=== PATIENT | male | born 1995 | race Caucasian/White ===

== ENCOUNTER 2017-03-31 18:45 | Inpatient (IN) | payer OTHER ==
[2017-03-31] MEDS ORDERED: SODIUM CHLORIDE 0.9% 1,000 ML IV ONE (20:32)
[2017-03-31] MEDS ORDERED: KETOROLAC 30 MG/ML 1 ML VIAL IVP STA (21:21)
[2017-03-31] MEDS ORDERED: IV VANCOMYCIN PER PHARMACY 1 EACH MISC MISCELLANE PRN (21:27)
--- NOTE | 2017-03-31 21:29 | ED ---
Skin/Abscess/FB HPI - General Chief complaint: Skin/Abscess/Foreign Body Stated complaint: abcess Time Seen by Provider: 03/31/17 20:19 Source: patient, RN notes reviewed, old records reviewed Mode of arrival: ambulatory Limitations: no limitations - History of Present Illness Initial comments: Is a 22-year-old male presenting to the emergency department with chief complaint of infection in his right axilla. Patient states that he noticed the pain a proximal 6 days ago. He reports that it's gotten worse. He size a provider at that emergency department 2 days ago and it was incised and drained. Patient was also seen again one day after and was a second incision and drainage performed at that time. Patient was also given a dose of IV clindamycin. Patient states that since yesterday the pain and swelling is worse in the right axilla. Patient has noticed increased redness extended from the right axilla all the way down to his right upper arm. Patient states that the pain is worse in the abscess. Patient was transferred via EMS from [facility] for further workup. Patient has been on Bactrim double strength for the past 3 days as well as the IV clindamycin. Patient denies any fever but states he feels chilled. Labs were obtained at [facility]. White count was 8.0, RBCs 4.4, hemoglobin 13.4. BUN 13, creatinine 0.9 mg. Potassium 4.0, sodium 137. Chloride 105. Patient denies any nausea or vomiting or abdominal pain. Denies any chest pain or shortness of breath. Patient reports the pain is just worse whenever he moves his arm. - Related Data Home Medications Medication Instructions Recorded Confirmed Sulfamethox-Tmp 800-160Mg [Bactrim 2 tab PO Q12HR 03/31/17 03/31/17 DS 800-160 mg] Allergies Allergy/AdvReac Type Severity Reaction Status Date / Time No Known Allergies Allergy Verified 03/31/17 20:32 Review of Systems ROS Statement: Those systems with pertinent positive or pertinent negative responses have been documented in the HPI. ROS Other: All systems not noted in ROS Statement are negative. Past Medical History Past Medical History: GERD/Reflux Additional Past Medical History / Comment(s): Asperger syndrome; Borderline Personality Disorder History of Any Multi-Drug Resistant Organisms: None Reported Past Surgical History: No Surgical Hx Reported Past Anesthesia/Blood Transfusion Reactions: No Reported Reaction Past Psychological History: Anxiety, Bipolar, Depression Smoking Status: Former smoker Past Alcohol Use History: None Reported Additional Past Alcohol Use History / Comment(s): Patient did smoke 3 to 4 cigarettes daily and quit in fall 2015. He denies any street drug use. Rarely drinks etoh. He lives alone. He does not have any children. He is not employed. He does have a GED. New Admission 06/26/15: Patient denies any alcohol use for the last 6 months. Past Drug Use History: None Reported - Past Family History Mother Family Medical History: No Reported History Additional Family Medical History / Comment(s): Mother is alive the patient does not have any contact with her and does not know her medical history. Father Family Medical History: Chest Pain / Angina Additional Family Medical History / Comment(s): Father is alive the patient has no contact with him. He does not know his past medical history. Brother(s) Family Medical History: No Reported History Additional Family Medical History / Comment(s): He has 3/2 brothers that are healthy. Sister(s) Family Medical History: No Reported History Additional Family Medical History / Comment(s): He has one full sister and one half-sister that are healthy with no major medical problems. General Exam - General Exam Comments Initial Comments: This is a pleasant 22-year-old male with chief complaint of right axillary abscess. Patient does not appear to be in any acute distress. Limitations: no limitations General appearance: alert, in no apparent distress Head exam: Present: atraumatic, normocephalic, normal inspection Eye exam: Present: normal appearance, PERRL, EOMI. Absent: scleral icterus, conjunctival injection, periorbital swelling ENT exam: Present: normal exam, mucous membranes moist Neck exam: Present: normal inspection. Absent: tenderness, meningismus, lymphadenopathy Respiratory exam: Present: normal lung sounds bilaterally. Absent: respiratory distress, wheezes, rales, rhonchi, stridor Cardiovascular Exam: Present: regular rate, normal rhythm, normal heart sounds. Absent: systolic murmur, diastolic murmur, rubs, gallop, clicks GI/Abdominal exam: Present: soft, normal bowel sounds. Absent: distended, tenderness, guarding, rebound, rigid Extremities exam: Present: normal inspection, full ROM, normal capillary refill. Absent: tenderness, pedal edema, joint swelling, calf tenderness Left Shoulder Exam: Present: normal inspection, full ROM, other (Patient has significant left axillary abscess measuring approximately 7 cm x 7 cm.) Upper Arm exam: Present: normal inspection, erythema (Patient has significant erythema extending of the upper arm. Line was drawn at this time.). Absent: full ROM Elbow exam: Present: normal inspection, full ROM Forearm Wrist exam: Present: normal inspection, full ROM Hand Wrist exam: Present: normal inspection, full ROM Neuro motor exam: Present: wrist extension intact, thumb opposition intact, thumb IP flexion intact, thumb adduction intact Vascular: Present: normal capillary refill Back exam: Present: normal inspection Neurological exam: Present: alert, oriented X3, CN II-XII intact Psychiatric exam: Present: normal affect, normal mood Skin exam: Present: warm, dry, intact, normal color. Absent: rash Course Vital Signs 03/31/17 03/31/17 19:45 22:19 Temperature 97.9 F 98.3 F Pulse Rate 80 73 Respiratory 18 18 Rate Blood Pressure 115/63 157/75 O2 Sat by Pulse 100 98 Oximetry Medical Decision Making - Medical Decision Making This is a pleasant 22-year-old male chief complaint of left axilla abscess for the past 6 days. He's had 2 incision and drainages as well as been on Bactrim for the past 3 days. Patient reports no improvement. He also has significant redness extending down the upper arm at this time. Patient was transferred here from [facility]. Labs were obtained. We did do blood cultures and an aerobic wound culture here. Patient will be started on vancomycin, patient failed outpatient bactrim. Patient does not have sepsis criteria at this time. Also patient relates that he recently go out of [facility] fo [facility]9 months 3 weeks or so ago. Patient states that he has noticed a rash on arms and legs, patient is concerned of possible bed bugs. No bug was seen on patient at this time. Patient agrees to the admission. Possible surgery consult may be needed for the incision and drainage of this abscess again. - Lab Data Result diagrams: 04/01/17 00:45 Disposition Clinical Impression: Abscess of right axilla, Right arm cellulitis Disposition: ADMITTED IP TO THIS HOSP Condition: Good Time of Disposition: 22:03
[2017-03-31] MEDS ORDERED: VANCOMYCIN 1,750 MG in SODIUM CHLORIDE 0.9% 250 ML IVPB STA (21:39)
[2017-03-31] MEDS: SODIUM CHLORIDE 0.9% 1,000 ML IV SCH (21:47)
[2017-03-31] MEDS ORDERED: ONDANSETRON 4 MG/2 ML VIAL IVP PRN (22:04)
[2017-03-31] MEDS ORDERED: ACETAMINOPHEN TAB 325 MG TAB PO PRN (22:04)
[2017-03-31] MEDS ORDERED: ALPRAZolam 0.25 MG TAB PO PRN (22:04)
[2017-03-31] MEDS ORDERED: NALOXONE 0.4 MG/ML 1 ML VIAL IV PRN (22:04)
[2017-03-31] MEDS ORDERED: MORPHINE SULFATE 4 MG/ML SYRINGE IV PRN (22:04)
[2017-04-01 01:10] LABS: Anion Gap 9 mmol/L; Blood Urea Nitrogen 13 mg/dL (9-20); Carbon Dioxide 23 mmol/L (22-30); Chloride 108 mmol/L (98-107); Glucose 99 mg/dL (74-99); Non-African American GFR(MDRD) >60 (>60 ml/min/1.73 sqM); Sodium 140 mmol/L (137-145)
[2017-04-01] MEDS: KETOROLAC 30 MG/ML 1 ML VIAL IVP PRN ×3 (08:43→22:18)
[2017-04-01] MEDS: VANCOMYCIN 1,750 MG in SODIUM CHLORIDE 0.9% 250 ML IVPB SCH ×2 (08:54→15:34)
[2017-04-01 10:17] LABS: Basophils # (A) 0.1 k/uL (0-0.2); Basophils % (A) 1 %; CH 30.1; CHCM 33.2; Eosinophils # (A) 0.3 k/uL (0-0.7); Eosinophils % (A) 6 %; HCT 39.4 % (39.0-53.0); HDW 2.78; HGB 12.9 gm/dL (13.0-17.5); Luc # (Auto) 0.09; Luc % (Auto) 2; Lymphocytes # (A) 0.9 k/uL (1.0-4.8); Lymphocytes % (A) 16 %; MCH 29.8 pg (25.0-35.0); MCHC 32.7 g/dL (31.0-37.0); MCV 91.1 fL (80.0-100.0); Mean Platelet Volume 6.6; Monocytes # (A) 0.3 k/uL (0-1.0); Monocytes % (A) 6 %; Neutrophils # (A) 3.9 k/uL (1.3-7.7); Neutrophils % (A) 70 %; RBC 4.32 m/uL (4.30-5.90); RDW 12.5 % (11.5-15.5); WBC 5.6 k/uL (3.8-10.6); WBC (Perox) 5.82
[2017-04-01 10:47] LABS: Anion Gap 10 mmol/L; Blood Urea Nitrogen 13 mg/dL (9-20); Calcium 9.4 mg/dL (8.4-10.2); Carbon Dioxide 21 mmol/L (22-30); Chloride 111 mmol/L (98-107); Glucose 100 mg/dL (74-99); Non-African American GFR(MDRD) >60 (>60 ml/min/1.73 sqM); Potassium 4.5 mmol/L (3.5-5.1); Sodium 142 mmol/L (137-145)
[2017-04-01 11:43] VITALS: BMI 34.4
[2017-04-01] MEDS ORDERED: TEMAZEPAM 15 MG CAP PO PRN (13:01)
[2017-04-01] MEDS ORDERED: HYDROcodone/APAP 5-325MG 1 EACH TAB PO PRN (13:01)
[2017-04-01] MEDS ORDERED: DIPH,PERTUS(ACELL)TETVAC-LF 0.5 ML VIAL IM ONE (13:22)
--- NOTE | 2017-04-01 13:25 | P.GSCN ---
History of Present Illness Consult date: 04/01/17 Reason for Consult: Right axilla abscess Requesting physician: Lynn Sadler History of present illness: Patient is a 22-year-old male admitted through the emergency department with complaints of infection to his right axilla. Onset of symptoms approximately 6 days ago. Patient apparently underwent incision and drainage in the emergency department 2 days ago and then returned the day after for another incision and drainage the symptoms did not improve. Patient was given 1 dose of IV clindamycin and started on Bactrim. Patient presented as mentioned above to the [facility] emergency department with increase in axillary pain and increased redness extending from his right axilla down his right upper arm. No evidence of fevers or leukocytosis on admission. Aerobic cultures were obtained. Patient was admitted to the medical floor for IV antibiotics. Upon examination , he should reports improvement in right arm pain. Denies chills, fevers, nausea, vomiting, shortness of breath, chest pain, or abdominal pain. Past Medical History Past Medical History: GERD/Reflux Additional Past Medical History / Comment(s): Asperger syndrome; Borderline Personality Disorder History of Any Multi-Drug Resistant Organisms: None Reported Past Surgical History: No Surgical Hx Reported Past Anesthesia/Blood Transfusion Reactions: No Reported Reaction Past Psychological History: Anxiety, Bipolar, Depression Smoking Status: Former smoker Past Alcohol Use History: None Reported Additional Past Alcohol Use History / Comment(s): Patient did smoke 3 to 4 cigarettes daily and quit in fall 2015. He denies any street drug use. Rarely drinks etoh. He lives alone. He does not have any children. He is not employed. He does have a GED. New Admission 06/26/15: Patient denies any alcohol use for the last 6 months. Past Drug Use History: None Reported - Past Family History Mother Family Medical History: No Reported History Additional Family Medical History / Comment(s): Mother is alive the patient does not have any contact with her and does not know her medical history. Father Family Medical History: Chest Pain / Angina Additional Family Medical History / Comment(s): Father is alive the patient has no contact with him. He does not know his past medical history. Brother(s) Family Medical History: No Reported History Additional Family Medical History / Comment(s): He has 3/2 brothers that are healthy. Sister(s) Family Medical History: No Reported History Additional Family Medical History / Comment(s): He has one full sister and one half-sister that are healthy with no major medical problems. Medications and Allergies Home Medications Medication Instructions Recorded Confirmed Type Sulfamethox-Tmp 800-160Mg [Bactrim 2 tab PO Q12HR 03/31/17 03/31/17 History DS 800-160 mg] Allergies Allergy/AdvReac Type Severity Reaction Status Date / Time No Known Allergies Allergy Verified 03/31/17 20:32 Surgical - Exam Vital Signs Temp Pulse Resp BP Pulse Ox 97.9 F 80 18 115/63 100 03/31/17 19:45 03/31/17 19:45 03/31/17 19:45 03/31/17 19:45 03/31/17 19:45 GENERAL: Pt awake and alert, well-appearing, well-nourished, and in no acute distress. LUNGS: Breath sounds clear to auscultation bilaterally. No wheezes, rales, or rhonchi. HEART: Heart S1, S2, no S3 or S4. No murmurs, rubs or gallops. ABDOMEN: Soft, nontender, nondistended, normoactive bowel sounds. No guarding, no rebound. No masses or organomegaly appreciated. NEUROLOGICAL: Pt oriented x 3. PSYCH: Normal mood, normal affect. SKIN: Right axillary abscess measuring approximately 7 cm x 7 cm with surrounding erythema. No purulent drainage noted. Results - Labs 04/01/17 09:56 04/01/17 09:56 Abnormal Lab Results - Last 24 Hours (Table) 04/01/17 04/01/17 04/01/17 Range/Units 00:45 09:56 09:56 Hgb 12.9 L (13.0-17.5) gm/dL Lymphocytes # 0.9 L (1.0-4.8) k/uL Chloride 108 H 111 H (98-107) mmol/L Carbon Dioxide 21 L (22-30) mmol/L Glucose 100 H (74-99) mg/dL Microbiology - Last 24 Hours (Table) 03/31/17 21:45 Wound Culture - Preliminary Axilla - Right Diabetes panel 04/01/17 04/01/17 Range/Units 00:45 09:56 Sodium 140 142 (137-145) mmol/L Potassium 4.0 4.5 (3.5-5.1) mmol/L Chloride 108 H 111 H (98-107) mmol/L Carbon Dioxide 23 21 L (22-30) mmol/L BUN 13 13 (9-20) mg/dL Creatinine 0.90 0.81 (0.66-1.25) mg/dL Glucose 99 100 H (74-99) mg/dL Calcium 9.0 9.4 (8.4-10.2) mg/dL Calcium panel 04/01/17 04/01/17 Range/Units 00:45 09:56 Calcium 9.0 9.4 (8.4-10.2) mg/dL Pituitary panel 04/01/17 04/01/17 Range/Units 00:45 09:56 Sodium 140 142 (137-145) mmol/L Potassium 4.0 4.5 (3.5-5.1) mmol/L Chloride 108 H 111 H (98-107) mmol/L Carbon Dioxide 23 21 L (22-30) mmol/L BUN 13 13 (9-20) mg/dL Creatinine 0.90 0.81 (0.66-1.25) mg/dL Glucose 99 100 H (74-99) mg/dL Calcium 9.0 9.4 (8.4-10.2) mg/dL Adrenal panel 04/01/17 04/01/17 Range/Units 00:45 09:56 Sodium 140 142 (137-145) mmol/L Potassium 4.0 4.5 (3.5-5.1) mmol/L Chloride 108 H 111 H (98-107) mmol/L Carbon Dioxide 23 21 L (22-30) mmol/L BUN 13 13 (9-20) mg/dL Creatinine 0.90 0.81 (0.66-1.25) mg/dL Glucose 99 100 H (74-99) mg/dL Calcium 9.0 9.4 (8.4-10.2) mg/dL Assessment and Plan Plan: Impression: 1. Right axillary abscess status post incision and drainage. Plan: 1. Continue IV antibiotics per Dr. Hussein recommendations. No surgical intervention planned at this time. Continue to monitor patient. The above impression and plan have been discussed and directed by Dr. Vizcarra. Nitesh BLANKENSHIP acting as scribe for Dr. Vizcarra.
[2017-04-01 13:35] LABS: ALT 82 U/L (21-72); AST 74 U/L (17-59); Alkaline Phosphatase 80 U/L (38-126); Anion Gap 9 mmol/L; Blood Urea Nitrogen 12 mg/dL (9-20); Calcium 9.5 mg/dL (8.4-10.2); Carbon Dioxide 21 mmol/L (22-30); Chloride 111 mmol/L (98-107); Glucose 100 mg/dL (74-99); Non-African American GFR(MDRD) >60 (>60 ml/min/1.73 sqM); Potassium 4.5 mmol/L (3.5-5.1); Sodium 141 mmol/L (137-145); Total Bilirubin 0.6 mg/dL (0.2-1.3); Total Protein 6.2 g/dL (6.3-8.2)
--- NOTE | 2017-04-01 13:40 | HP ---
DATE OF ADMISSION: CHIEF COMPLAINT: Pain and swelling in the right axis. HISTORY OF PRESENT ILLNESS: This 22-year-old gentleman with a past medical history of gastroesophageal reflux disease, Asperger's syndrome, borderline personality disorder, history of anxiety, bipolar depression, being followed by no primary physician in the outpatient setting, was recently incarcerated apparently for the patient apparently was in longterm for about more than a year and the patient apparently has had some other the patient has also had skin infection and MRSA infection also. While in the longterm, patient developed an abscesses in the right shoulder which was incised by the PA Details are not available. Currently the patient is complaining of recurrent pain and swelling in the right axilla which was incised twice and now because of the lack of improvement, patient came to [facility] and admitted to the hospital for further evaluation and treatment. 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 The patient also reporting multiple skin lesions also which was some itching and as well as blanching also. There is no history of fever, rigors or chills. No history of headache, loss of consciousness or seizures. PAST MEDICAL HISTORY: History of GERD , Asperger's syndrome, borderline personality, bipolar depression, history of nicotine dependence. Medications prior to admission include: Bactrim DS one p.o. b.i.d. ALLERGIES: None. FAMILY HISTORY: Unknown. SOCIAL HISTORY: Previous history of smoking, no history of alcohol intake. REVIEW OF SYSTEMS: ENT: No diminishing hearing or diminished vision. CARDIOVASCULAR: S1, S2 normal. No angina or palpitations. RESPIRATORY: No cough. GI: No nausea and vomiting. GENITOURINARY: No dysuria. CENTRAL NERVOUS SYSTEM: No numbness or weakness. ALLERGIES: No asthma or hayfever. MUSCULOSKELETAL: As mentioned earlier. HEMATOLOGY/ONCOLOGY: No history of anemia. ENDOCRINE: No history of diabetes, or hypothyroidism. CONSTITUTIONAL: As mentioned earlier. DERMATOLOGY: As mentioned earlier. RHEUMATOLOGY: Negative. PSYCHIATRY: As mentioned earlier. PHYSICAL EXAMINATION: The patient is alert and oriented x3. Pulse 70, blood pressure 122/68, respiration 18, temperature 98 degrees, pulse ox 100% on room air. HEENT: Conjunctivae normal. NECK: No jugular venous distention. CARDIOVASCULAR: S1, S2 muffled. RESPIRATORY: Breath sounds diminished at the bases. Scattered rhonchi, no crackles. ABDOMEN: Soft, nontender. Legs: No edema. No swelling. Nervous system: Higher functions as mentioned earlier. Moves all four limbs. No focal deficits. No lymphadenopathy. Examination of the right axilla significant pain and swelling of the right no fluctuation, severely tender. SKIN: As mentioned earlier. Joints: No active deforming arthropathy. LAB INVESTIGATIONS AT THIS TIME shows: WBC 5.3, hemoglobin 12.9. Sodium 148, potassium 4.6, CO2 is 21, glucose 100. ASSESSMENT: 1. Recurrent abscess and cellulitis of the right axilla rule out Methicillin-resistant Staph aureus. 2. Possible hidradenitis suppurative. 3. Anemia, normocytic anemia of chronic disease. 4. Superficial skin lesions also. 5. Increased random blood sugar. 6. History of gastroesophageal reflux disease. 7. History of Asperger's syndrome. 8. History of borderline personality disorder. 9. Anxiety, bipolar depression, not otherwise specified. RECOMMENDATIONS AND DISCUSSION: Recommend to continue current medications, continue monitoring, symptomatic treatment, I would recommend to initiate vancomycin and also obtain infectious disease evaluation and evaluation. Other than that, we will follow the patient closely. Guarded prognosis because of multiple complex medical issues. Further recommendations to follow. A copy of dictation being forwarded to . I also recommend the patient to follow-up with primary care physician in the outpatient setting. BRIAN
--- NOTE | 2017-04-01 13:47 | P.CONS ---
History of Present Illness - Reason for Consult Consult date: 04/01/17 Right axilla abscess - History of Present Illness This is a 22-year-old male with history of Asperger's syndrome and borderline personality. Patient gives history that he had an abscess in the left axilla area 2 months ago and this was punctured and drained and he does not believe there were any cultures done at that time. He was incarcerated at that time in [facility]. 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 He has also developed redness and swelling in the right axilla area approximate 7 days ago. He states he went to the hospital in [place] a total of 3 times and believes he had IV antibiotics on a second trip there and had to I&D's done to the right axilla abscess and was placed on Bactrim on March 29. He subsequently went to the hospital in [place] yesterday and received a dose of clindamycin and then transferred to [facility] for further treatment. He states that he has been taking the Bactrim as prescribed since Friday and the redness and swelling in his right axilla only worsened. He denies having any fever or chills, muscle aches, body aches, nausea, vomiting. He does state he has decreased appetite and gives this history that he is only eating peanut butter since he was incarcerated. Redness from the right axilla has spread down his arm to the antecubital area. Patient has been on vancomycin and he states there has been some improvement of the swelling and size since his admission. Wound and blood cultures are status received. Review of Systems All systems: negative Constitutional: Denies chills, Denies fever Eyes: denies blurred vision, denies pain Ears, nose, mouth and throat: Denies headache, Denies sore throat Cardiovascular: Denies chest pain, Denies shortness of breath Respiratory: Denies cough Gastrointestinal: Denies abdominal pain, Denies diarrhea, Denies nausea, Denies vomiting Musculoskeletal: Denies myalgias Integumentary: Reports wounds, Denies pruritus, Denies rash Neurological: Denies numbness, Denies weakness Psychiatric: Denies anxiety, Denies depression Endocrine: Denies fatigue, Denies weight change Past Medical History Past Medical History: GERD/Reflux Additional Past Medical History / Comment(s): Asperger syndrome; Borderline Personality Disorder History of Any Multi-Drug Resistant Organisms: None Reported Past Surgical History: No Surgical Hx Reported Past Anesthesia/Blood Transfusion Reactions: No Reported Reaction Past Psychological History: Anxiety, Bipolar, Depression Smoking Status: Former smoker Past Alcohol Use History: None Reported Additional Past Alcohol Use History / Comment(s): Patient did smoke 3 to 4 cigarettes daily and quit in fall 2015. He denies any street drug use. Rarely drinks etoh. He lives alone. He does not have any children. 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 He was recently incarcerated for 9 months in [facility] Past Drug Use History: None Reported - Past Family History Mother Family Medical History: No Reported History Additional Family Medical History / Comment(s): Mother is alive the patient does not have any contact with her and does not know her medical history. Father Family Medical History: Chest Pain / Angina Additional Family Medical History / Comment(s): Father is alive the patient has no contact with him. He does not know his past medical history. Brother(s) Family Medical History: No Reported History Additional Family Medical History / Comment(s): He has 3/2 brothers that are healthy. Sister(s) Family Medical History: No Reported History Additional Family Medical History / Comment(s): He has one full sister and one half-sister that are healthy with no major medical problems. Medications and Allergies Allergies Allergy/AdvReac Type Severity Reaction Status Date / Time No Known Allergies Allergy Verified 03/31/17 20:32 Physical Exam Vitals: Vital Signs Temp Pulse Pulse Resp BP BP Pulse Ox 04/01/17 07:00 98 F 70 18 122/68 100 03/31/17 23:42 98.4 F 68 18 106/69 98 03/31/17 22:19 98.3 F 73 18 157/75 98 03/31/17 19:45 97.9 F 80 18 115/63 100 Intake and Output 03/31/17 04/01/17 04/01/17 22:59 06:59 14:59 Intake Total 100 Balance 100 Intake: Oral 100 Other: # Voids 1 1 Weight 99.79 kg 102.739 kg Gen: This is an overweight 22-year-old male. He is seen sitting up in bed and appears to be in no acute distress.. HEENT: Head is atraumatic, normocephalic. Pupils equal, round. Sclerae is anicteric. Mucous membranes of the mouth are moist. No thrush noted. NECK: Supple. No JVD. No lymphadenopathy. No thyromegaly. LUNGS: Clear to auscultation. No wheezes or rhonchi. No intercostal retractions. HEART: Regular rate and rhythm. No murmur. ABDOMEN: Soft. Bowel sounds are present. No masses. No tenderness. EXTREMITIES: No pedal edema. No calf tenderness. Right axilla has a large edematous area with erythema to the entire axilla area spreading down the arm to the antecubital area. There is noted dried blood in the area. No active drainage. There are multiple skin lesions particularly at the right axilla area but also to bilateral arms back, abdomen and lower extremities which are periodic. No drainage noted. NEUROLOGICAL: Patient is awake, alert and oriented x3. Cranial nerves 2 through 12 are grossly intact. Results Results: Laboratory Results WBC 5.6 k/uL (3.8-10.6) 04/01/17 09:56 RBC 4.32 m/uL (4.30-5.90) 04/01/17 09:56 Hgb 12.9 gm/dL (13.0-17.5) L 04/01/17 09:56 Hct 39.4 % (39.0-53.0) 04/01/17 09:56 MCV 91.1 fL (80.0-100.0) 04/01/17 09:56 MCH 29.8 pg (25.0-35.0) 04/01/17 09:56 MCHC 32.7 g/dL (31.0-37.0) 04/01/17 09:56 RDW 12.5 % (11.5-15.5) 04/01/17 09:56 Plt Count 228 k/uL (150-450) 04/01/17 09:56 Neutrophils % 70 % 04/01/17 09:56 Lymphocytes % 16 % 04/01/17 09:56 Monocytes % 6 % 04/01/17 09:56 Eosinophils % 6 % 04/01/17 09:56 Basophils % 1 % 04/01/17 09:56 Neutrophils # 3.9 k/uL (1.3-7.7) 04/01/17 09:56 Lymphocytes # 0.9 k/uL (1.0-4.8) L 04/01/17 09:56 Monocytes # 0.3 k/uL (0-1.0) 04/01/17 09:56 Eosinophils # 0.3 k/uL (0-0.7) 04/01/17 09:56 Basophils # 0.1 k/uL (0-0.2) 04/01/17 09:56 Sodium 141 mmol/L (137-145) 04/01/17 09:56 Potassium 4.5 mmol/L (3.5-5.1) 04/01/17 09:56 Chloride 111 mmol/L (98-107) H 04/01/17 09:56 Carbon Dioxide 21 mmol/L (22-30) L 04/01/17 09:56 Anion Gap 9 mmol/L 04/01/17 09:56 BUN 12 mg/dL (9-20) 04/01/17 09:56 Creatinine 0.80 mg/dL (0.66-1.25) 04/01/17 09:56 Est GFR (MDRD) Af Amer >60 (>60 ml/min/1.73 sqM) 04/01/17 09:56 Est GFR (MDRD) Non-Af >60 (>60 ml/min/1.73 sqM) 04/01/17 09:56 Glucose 100 mg/dL (74-99) H 04/01/17 09:56 Plasma Lactic Acid Fam 0.8 mmol/L (0.7-2.0) 04/01/17 00:45 Calcium 9.5 mg/dL (8.4-10.2) 04/01/17 09:56 Total Bilirubin 0.6 mg/dL (0.2-1.3) 04/01/17 09:56 AST 74 U/L (17-59) H 04/01/17 09:56 ALT 82 U/L (21-72) H 04/01/17 09:56 Alkaline Phosphatase 80 U/L (38-126) 04/01/17 09:56 Total Protein 6.2 g/dL (6.3-8.2) L 04/01/17 09:56 Albumin 3.4 g/dL (3.5-5.0) L 04/01/17 09:56 CBC & Chem 7: 04/02/17 08:04 04/02/17 08:03 Labs: Abnormal Lab Results - Last 24 Hours (Table) 04/01/17 Range/Units 00:45 Chloride 108 H (98-107) mmol/L Assessment and Plan Plan: This is a 22-year-old male who presented to the hospital on multiple occasions to [facility] and then the [place] and eventually transferred to [facility]. He failed treatment with Bactrim as an outpatient. Patient has been seen by Dr. Vizcarra with no plan for I&D at this time. Patient had previous abscess in the left axilla but did not suspect any cultures were obtained at that time. Recent wound cultures from the right axilla abscess will be requested from [facility]. Tetanus status will be updated. Patient is currently on IV vancomycin which will be continued. Dietitian consult regarding patient's diet restrictions with only wishing to eat peanut butter. Continue supportive care. Further recommendations as patient progresses. The above dictated assessment and findings were discussed with Dr. Hussein. The impression and plan of care have been directed as dictated. Erika Shah nurse practitioner acting as scribe for Dr. Hussein.
[2017-04-01] MEDS: HEPARIN SODIUM,PORCINE 5,000 UNIT/ML 1 ML VIAL SQ SCH ×2 (13:54→20:36)
[2017-04-01 13:57] LABS: Appearance,Urine Clear (Clear); Bilirubin,Urine Negative (Negative); Glucose,Urine (UA) Negative (Negative); Ketones,Urine Negative (Negative); Leukocyte Esterase,Urine Negative (Negative); Nitrite,Urine Negative (Negative); PH, Urine 6.5 (5.0-8.0); Protein,Urine Negative (Negative); Specific Gravity,Urine 1.013 (1.001-1.035); UA Billing (MACRO vs. MICRO) CHEM
[2017-04-01] MEDS: SODIUM CHLORIDE 0.9% 1,000 ML IV SCH (20:37)
--- NOTE | 2017-04-01 23:40 | P.CON ---
Consult Note - . Consult date: 04/01/17 Assessment/Plan:: This is a 22-year-old male with history of Asperger's syndrome and borderline personality. Patient gives history that he had an abscess in the left axilla area 2 months ago and this was punctured and drained and he does not believe there were any cultures done at that time. He was incarcerated at that time in [facility]. 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 He has also developed redness and swelling in the right axilla area approximate 7 days ago. He states he went to the hospital in [place] a total of 3 times and believes he had IV antibiotics on a second trip there and had to I&D's done to the right axilla abscess and was placed on Bactrim on March 29. He subsequently went to the hospital in [place] yesterday and received a dose of clindamycin and then transferred to [facility] for further treatment. He states that he has been taking the Bactrim as prescribed since Friday and the redness and swelling in his right axilla only worsened. He denies having any fever or chills, muscle aches, body aches, nausea, vomiting. He does state he has decreased appetite and gives this history that he is only eating peanut butter since he was incarcerated. Redness from the right axilla has spread down his arm to the antecubital area. Patient has been on vancomycin and he states there has been some improvement of the swelling and size since his admission. Wound and blood cultures are status received. Please see the consult note is dictated by nurse practitioner Erika Alyssa. Patient has a history of a prior abscess of the left arm that responded very well to therapy. Current cultures are in process. The patient does have evidence of the abscess the right axillary areas been seen by surgery in determining the need for further assessment drainage at this time since he is having some active drainage. It may facilitate healing process though if it is incised and drained. Patient does have a significant otherwise new process on his skin. Multiple small erythematous areas are noted on his arms lower back lower legs and even to the upper part of his chest near his neck. They are pruritic and bothering him quite a bit. 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 He does wear rubber gloves and that area is somewhat preserved as far as any rash. He does wear socks coveralls boots while he is on the farm. 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 He has no known history of iodine ALLERGY. This potential this is a contact ALLERGY of some type versus some other type of problem. There is no evidence of any obvious ectoparasites. There is no hand involvement. He has a girlfriend and she has no similar lesions. He is never had this process in the past. Imaging vancomycin therapy with concerns to staph and MRSA at this site. Local wound care as a dry dressing until he has incision and drainage. He has no evidence of any underlying herpetic infection or STDs at this time. The lesions are somewhat atypical for erythema multiforme with considered given his current infectious process. I agree with evaluation, assessment and plan as dictated by nurse practitioner Mrs. Erika Shah.
[2017-04-01] MEDS ORDERED: diphenhydrAMINE 25 MG CAP PO PRN (23:42)
[2017-04-01] MEDS ORDERED: methylPREDNISolone SOD SUCCI 40 MG/ML 1 ML VIAL IV STA (23:43)
[2017-04-02] MEDS: VANCOMYCIN 1,750 MG in SODIUM CHLORIDE 0.9% 250 ML IVPB SCH ×3 (00:14→15:19)
[2017-04-02] MEDS ORDERED: VANCOMYCIN TROUGH DUE 1 EACH MISC MISCELLANE ONE (07:00)
[2017-04-02] MEDS ORDERED: PANTOPRAZOLE 40 MG TABLET PO SCH (07:30)
[2017-04-02] MEDS: HEPARIN SODIUM,PORCINE 5,000 UNIT/ML 1 ML VIAL SQ SCH (08:25)
[2017-04-02 08:30] LABS: Basophils % (A) 0 %; CH 29.7; CHCM 32.5; Eosinophils % (A) 1 %; HCT 42.9 % (39.0-53.0); HDW 2.79; Luc # (Auto) 0.04; Luc % (Auto) 1; Lymphocytes # (A) 0.5 k/uL (1.0-4.8); Lymphocytes % (A) 15 %; MCHC 32.7 g/dL (31.0-37.0); MCV 91.6 fL (80.0-100.0); Mean Platelet Volume 7.9; Monocytes # (A) 0.1 k/uL (0-1.0); Monocytes % (A) 2 %; Neutrophils # (A) 2.5 k/uL (1.3-7.7); Neutrophils % (A) 81 %; RBC 4.68 m/uL (4.30-5.90); RDW 12.3 % (11.5-15.5); WBC 3.1 k/uL (3.8-10.6)
[2017-04-02 08:40] LABS: Anion Gap 11 mmol/L; Blood Urea Nitrogen 13 mg/dL (9-20); Calcium 9.5 mg/dL (8.4-10.2); Carbon Dioxide 22 mmol/L (22-30); Chloride 110 mmol/L (98-107); Glucose 121 mg/dL (74-99); Non-African American GFR(MDRD) >60 (>60 ml/min/1.73 sqM); Potassium 4.7 mmol/L (3.5-5.1); Sodium 143 mmol/L (137-145)
[2017-04-02 09:46] LABS: Hepatitis B Surface Ag Index 0.08
[2017-04-02 09:52] LABS: Hepatitis B Core IgM Index 0.02
[2017-04-02 10:04] LABS: Hepatitis C Virus IgG Index 0.02
[2017-04-02] MEDS ORDERED: MULTIVITAMINS, THERA 1 EACH TAB PO SCH (12:00)
[2017-04-02 15:33] VITALS: BP 126/67; PULSE 97; RESP 16; TEMP 97.3
--- NOTE | 2017-04-02 19:02 | P.DS ---
Providers Date of admission: 03/31/17 21:49 Expected date of discharge: 04/02/17 Attending physician: Bairon Monsalve Consults: 03/31/17 22:04 Consult Physician Stat Consulting Provider: Louis Vizcarra Consult Reason/Comments: Right Axilla Abscess Do you want consulting provider notified?: Yes, Notify in am Consult Physician Stat Consulting Provider: Ang Hussein Consult Reason/Comments: Axilla Abcess, Failed outpatient treatment Do you want consulting provider notified?: Yes, Notify in am Primary care physician: Stated None Dr. Perry Hospital Course: Final Diagnoses 1. Recurrent abscess and cellulitis of the right axilla, cultures positive for MRSA 2. Possible hidradenitis supppurative 3.Anemia, normocytic of chronic disease 4. Superficial skin lesions 5. Gastroesophageal reflux disease 6. Asperger's syndrome 7 borderline personality disorder 8 anxiety, bipolar depression, not otherwise specified Hospital course: This a 22-year-old gentleman recently incarcerated for the last year developed skin infection/right shoulder abscess with MRSA. Underwent I & D times 2, outpatient. Details unavailable. Failed outpatient therapy/ treatment and presented to the ER. Evaluated by surgery, considered nonsurgical with no further I&D recommended at this time. Maintained on IV antibiotics as per infectious disease with final cultures reporting MRSA. Significant clinical improvement. Patient has been cleared by all consults for discharge. Patient is being discharged home in a stable condition with guarded prognosis. Microbiology 03/31/17 21:45 Axilla - Right Gram Stain - Preliminary 03/31/17 21:45 Axilla - Right Wound Culture - Preliminary Presumptive MRSA 03/31/17 20:43 Blood Blood Culture - Preliminary No Growth after 24 hours The impression and plan of care has been dictated as directed. : I performed a H&P examination of this patient and discussed the same with the dictator. I agree with the dictator's note. Any additional findings/opinions/ etc. will be noted. Patient Condition at Discharge: Stable Plan - Discharge Summary New Discharge Prescriptions: HYDROcodone/APAP 5-325MG [Progreso 5-325] 1 each PO Q6HR PRN #30 tab PRN Reason: Moderate Pain Multivitamins, Thera [Multivitamin (formulary)] 1 each PO DAILY@1200 #30 tab Pantoprazole [Protonix] 40 mg PO AC-BRKFST #30 tab Sulfamethox-Tmp 800-160Mg [Bactrim DS 800-160 mg] 1 tab PO Q8HR #30 tab Discharge Medication List HYDROcodone/APAP 5-325MG [Progreso 5-325] 1 each PO Q6HR PRN #30 tab 04/02/17 [Rx] Multivitamins, Thera [Multivitamin (formulary)] 1 each PO DAILY@1200 #30 tab [Rx] Pantoprazole [Protonix] 40 mg PO AC-BRKFST #30 tab 04/02/17 [Rx] Sulfamethox-Tmp 800-160Mg [Bactrim DS 800-160 mg] 1 tab PO Q8HR #30 tab [Rx] diphenhydrAMINE [Benadryl] 25 mg PO QID PRN cap 04/02/17 [Rx] Follow up Appointment(s)/Referral(s): Soha Perry MD [REFERRING] - 3 Days Ambulatory/Diagnostic Orders: Complete Blood Count w/diff [LAB.AMB] Time Frame: 3 Days, Location: Determined By Patient Activity/Diet/Wound Care/Special Instructions: Antibx. as per ID Diet: regular Activity: limited TIll F/U Discharge Disposition: HOME SELF-CARE
[2017-04-03 13:56] LABS: HIV-1/HIV-2 Ab Screen NONREAC (NON REAC)
[2017-04-04 15:00] LABS: Hepatitis C Virus IgG Ab Negative (Negative)
== END 2017-04-02 18:48 | disposition home or self-care (01) | DRG 603 ==
LOC: EC 18:45 → 4MS4W 21:49
PROVIDERS: ADMIT Hospitalist; ATTEND Hospitalist
DX: L02.411 Cutaneous abscess of right axilla (principal); F84.5 Asperger's syndrome; F32.9 Major depressive disorder, single episode, unspecified; D63.8 Anemia in other chronic diseases classified elsewhere; L03.111 Cellulitis of right axilla; F41.9 Anxiety disorder, unspecified; F60.3 Borderline personality disorder; K21.9 Gastro-esophageal reflux disease without esophagitis; L98.9 Disorder of the skin and subcutaneous tissue, unspecified; R73.9 Hyperglycemia, unspecified; B95.62 Methicillin resistant Staphylococcus aureus infection as the cause of diseases classified elsewhere; Z87.891 Personal history of nicotine dependence
CPT/HCPCS: 36415; 80048; 80053; 80074; 80202; 80306; 81003; 83605; 85025; 87040; 87070; 87077; 87186; 87205; 87389; 90715; 96361; 96365; 96375; 99284

== ENCOUNTER 2017-04-21 21:49 | Emergency (ER) | payer OTHER ==
--- NOTE | 2017-04-21 22:42 | ED ---
General Adult HPI - General Chief complaint: Psychiatric Symptoms Stated complaint: Mental Health Time Seen by Provider: 04/21/17 21:53 Source: police, EMS, RN notes reviewed Mode of arrival: EMS Limitations: no limitations - History of Present Illness Initial comments: 22-year-old male presents to the hospital by EMS. Patient significantly found. Patient will Be taking care of. Patient states he is not homicidal or suicidal. Patient states that he just needs to get out of his house. Patient denies any recent fever, chills, shortness of breath, chest pain, back pain, abdominal pain, nausea vomiting, numbness or tingling, dysuria or hematuria, constipation or diarrhea, headaches or visual changes, or any other current symptoms. - Related Data Home Medications Medication Instructions Recorded Confirmed No Known Home Medications [No 04/21/17 04/21/17 Known Home Medications] Allergies Allergy/AdvReac Type Severity Reaction Status Date / Time No Known Allergies Allergy Verified 04/21/17 21:57 Review of Systems ROS Statement: Those systems with pertinent positive or pertinent negative responses have been documented in the HPI. ROS Other: All systems not noted in ROS Statement are negative. Past Medical History Past Medical History: GERD/Reflux Additional Past Medical History / Comment(s): Asperger syndrome; Borderline Personality Disorder History of Any Multi-Drug Resistant Organisms: MRSA Date of last positivie culture/infection: 03/31/17 MDRO Source:: AXILLA Past Surgical History: No Surgical Hx Reported Past Anesthesia/Blood Transfusion Reactions: No Reported Reaction Past Psychological History: Anxiety, Bipolar, Depression Smoking Status: Former smoker Past Alcohol Use History: None Reported Additional Past Alcohol Use History / Comment(s): Patient did smoke 3 to 4 cigarettes daily and quit in fall 2015. He denies any street drug use. Rarely drinks etoh. He lives alone. He does not have any children. 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 He was recently incarcerated for 9 months in [facility] Past Drug Use History: None Reported - Past Family History Mother Family Medical History: No Reported History Additional Family Medical History / Comment(s): Mother is alive the patient does not have any contact with her and does not know her medical history. Father Family Medical History: Chest Pain / Angina Additional Family Medical History / Comment(s): Father is alive the patient has no contact with him. He does not know his past medical history. Brother(s) Family Medical History: No Reported History Additional Family Medical History / Comment(s): He has 3/2 brothers that are healthy. Sister(s) Family Medical History: No Reported History Additional Family Medical History / Comment(s): He has one full sister and one half-sister that are healthy with no major medical problems. General Exam Limitations: no limitations General appearance: alert, anxious Head exam: Present: atraumatic, normocephalic, normal inspection Eye exam: Present: normal appearance, PERRL, EOMI. Absent: scleral icterus, conjunctival injection, periorbital swelling Respiratory exam: Present: normal lung sounds bilaterally. Absent: respiratory distress, wheezes, rales, rhonchi, stridor Cardiovascular Exam: Present: regular rate, normal rhythm, normal heart sounds. Absent: systolic murmur, diastolic murmur, rubs, gallop, clicks Neurological exam: Present: alert, oriented X3 Psychiatric exam: Present: agitated. Absent: homicidal ideation, suicidal ideation Skin exam: Present: warm, dry, intact, normal color. Absent: rash Course Vital Signs 04/21/17 21:57 Temperature 98.5 F Pulse Rate 81 Respiratory 20 Rate Blood Pressure 135/76 O2 Sat by Pulse 100 Oximetry Medical Decision Making - Medical Decision Making 22-year-old male presents for psychiatric evaluation. This time patient denies any suicidal or homicidal ideation. At this time discharge the patient home for psychiatric evaluation. This time he does contract to safety. We discussed return parameters and follow-up. Patient and all questions have been answered. He will be discharged. - Lab Data Lab Results 04/21/17 Range/Units 22:10 Urine Opiates Screen Not Detected (NotDetected) Ur Oxycodone Screen Not Detected (NotDetected) Urine Methadone Screen Not Detected (NotDetected) Ur Propoxyphene Screen Not Detected (NotDetected) Ur Barbiturates Screen Not Detected (NotDetected) U Tricyclic Antidepress Not Detected (NotDetected) Ur Phencyclidine Scrn Not Detected (NotDetected) Ur Amphetamines Screen Not Detected (NotDetected) U Methamphetamines Scrn Not Detected (NotDetected) U Benzodiazepines Scrn Not Detected (NotDetected) Urine Cocaine Screen Not Detected (NotDetected) U Marijuana (THC) Screen Not Detected (NotDetected) Disposition Clinical Impression: Alcohol use Disposition: HOME SELF-CARE Condition: Stable Instructions: Alcohol Intoxication (ED) Additional Instructions: Please use medication as discussed. Please follow up with family doctor if symptoms have not improved over the next two days. Please return to the emergency room if your symptoms increase or worsen or for any other concerns. Referrals: Madelaine Ruby MD [STAFF PHYSICIAN] - 1-2 days
[2017-04-22 03:14] VITALS: BP 132/58; PULSE 72; RESP 18; TEMP 97.8
== END 2017-04-22 03:13 | disposition home or self-care (01) ==
LOC: EC 21:49
DX: Z72.89 Other problems related to lifestyle (principal); Z04.6 Encounter for general psychiatric examination, requested by authority; Z86.14 Personal history of Methicillin resistant Staphylococcus aureus infection; Z87.891 Personal history of nicotine dependence
CPT/HCPCS: 80306; 82075; 99284

== ENCOUNTER 2017-08-09 17:38 | Emergency (ER) | payer OTHER ==
[2017-08-09 17:49] VITALS: BP 133/73; PULSE 72; RESP 18; TEMP 98.2
--- NOTE | 2017-08-09 18:10 | ED ---
Extremity Problem HPI - General Chief complaint: Extremity Problem,Nontraumatic Stated complaint: numbness in right arm Time Seen by Provider: 08/09/17 17:58 Source: patient, RN notes reviewed Mode of arrival: ambulatory Limitations: no limitations - History of Present Illness Initial comments: 22-year-old male presents emergency Department chief complaint of right hand numbness and tingling. Patient states has been present for last couple weeks. Patient states started after he started working at [employer]. 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 Patient states it's only over his first second and third and partial of is fourth digit. Patient states that he is wake up all night with numbness and tingling he has noticed increased movement makes his symptoms worse. He denies any weakness associated with. Denies any neck pain, headache, dizziness or any focal weakness. - Related Data Previous Rx's Medication Instructions Recorded methylPREDNISolone [Medrol Dose 4 mg PO DIRECTED #1 pack 08/09/17 Pack] Allergies Allergy/AdvReac Type Severity Reaction Status Date / Time No Known Allergies Allergy Verified 08/09/17 17:57 Review of Systems ROS Statement: Those systems with pertinent positive or pertinent negative responses have been documented in the HPI. ROS Other: All systems not noted in ROS Statement are negative. Past Medical History Past Medical History: GERD/Reflux Additional Past Medical History / Comment(s): Asperger syndrome; Borderline Personality Disorder History of Any Multi-Drug Resistant Organisms: MRSA Date of last positivie culture/infection: 03/31/17 MDRO Source:: AXILLA Past Surgical History: No Surgical Hx Reported Past Anesthesia/Blood Transfusion Reactions: No Reported Reaction Past Psychological History: Anxiety, Bipolar, Depression Smoking Status: Former smoker Past Alcohol Use History: None Reported Past Drug Use History: None Reported - Past Family History Mother Family Medical History: No Reported History Additional Family Medical History / Comment(s): Mother is alive the patient does not have any contact with her and does not know her medical history. Father Family Medical History: Chest Pain / Angina Additional Family Medical History / Comment(s): Father is alive the patient has no contact with him. He does not know his past medical history. Brother(s) Family Medical History: No Reported History Additional Family Medical History / Comment(s): He has 3/2 brothers that are healthy. Sister(s) Family Medical History: No Reported History Additional Family Medical History / Comment(s): He has one full sister and one half-sister that are healthy with no major medical problems. General Exam Limitations: no limitations General appearance: alert, in no apparent distress Head exam: Present: atraumatic, normocephalic, normal inspection Respiratory exam: Present: normal lung sounds bilaterally. Absent: respiratory distress, wheezes, rales, rhonchi, stridor Cardiovascular Exam: Present: regular rate, normal rhythm, normal heart sounds. Absent: systolic murmur, diastolic murmur, rubs, gallop, clicks Extremities exam: Present: other (Positive Inés's test, right hand interventional physiatrist strength equal the left 5/5 neurovascular intact with cap refill less than 2 seconds) Neurological exam: Present: alert, reflexes normal. Absent: motor sensory deficit Skin exam: Present: warm, dry, intact, normal color. Absent: rash Course Vital Signs 08/09/17 17:48 Temperature 98.2 F Pulse Rate 72 Respiratory 18 Rate Blood Pressure 133/73 O2 Sat by Pulse 100 Oximetry Disposition Clinical Impression: Carpal tunnel syndrome Disposition: HOME SELF-CARE Condition: Stable Instructions: Paresthesia (ED) Additional Instructions: Please return to the Emergency Department if symptoms worsen or any other concerns. Prescriptions: methylPREDNISolone [Medrol Dose Pack] 4 mg PO DIRECTED #1 pack Referrals: None,Stated [Primary Care Provider] - 1-2 days Time of Disposition: 18:09
== END 2017-08-09 18:24 | disposition home or self-care (01) ==
LOC: EC 17:38
DX: G56.01 Carpal tunnel syndrome, right upper limb (principal); Z87.891 Personal history of nicotine dependence
CPT/HCPCS: 99282

== ENCOUNTER 2017-08-11 20:55 | Inpatient (IN) | payer MEDICAID, OTHER ==
--- NOTE | 2017-08-11 21:43 | ED ---
Psych HPI - General Source: EMS Mode of arrival: EMS <Vishal Lee - Last Filed: 08/11/17 21:40> <Areli Garcia - Last Filed: 08/12/17 03:23> - General Chief Complaint: Psychiatric Symptoms Stated Complaint: mental health Time Seen by Provider: 08/11/17 21:37 - History of Present Illness Initial Comments: This 22-year-old white male presents for psychiatric evaluation. Report relates that he apparently was trying to jump out in front of traffic. He also was wanting the police to shoot him. The patient is nonverbal upon evaluation in the emergency department. He will nod his head yes or no to questions and follow commands but otherwise will not talk and therefore history is limited. Old records relate that he has a long psychiatric history. He does indicate that he is depressed. He will not express how long this has been occurring. He denies any drugs or alcohol use. He denies any medical complaints. No other identifiable complaints or modifying factors. (Vishal Lee) - Related Data Home Medications Medication Instructions Recorded Confirmed methylPREDNISolone [Medrol Dose See Taper PO DAILY 08/11/17 08/11/17 Pack] Allergies Allergy/AdvReac Type Severity Reaction Status Date / Time No Known Allergies Allergy Verified 08/11/17 21:18 Review of Systems ROS Other: All systems not noted in ROS Statement are negative. <Vishal Lee - Last Filed: 08/11/17 21:40> ROS Other: All systems not noted in ROS Statement are negative. <Areli Garcia - Last Filed: 08/12/17 03:23> ROS Statement: Those systems with pertinent positive or pertinent negative responses have been documented in the HPI. Past Medical History Past Medical History: GERD/Reflux Additional Past Medical History / Comment(s): Asperger syndrome; Borderline Personality Disorder History of Any Multi-Drug Resistant Organisms: C-DIFF, MRSA Date of last positivie culture/infection: 03/31/17 MDRO Source:: AXILLA Past Surgical History: No Surgical Hx Reported Past Anesthesia/Blood Transfusion Reactions: No Reported Reaction Past Psychological History: Anxiety, Bipolar, Depression Smoking Status: Former smoker Past Alcohol Use History: None Reported, Occasional Past Drug Use History: None Reported - Past Family History Mother Family Medical History: No Reported History Additional Family Medical History / Comment(s): Mother is alive the patient does not have any contact with her and does not know her medical history. Father Family Medical History: Chest Pain / Angina Additional Family Medical History / Comment(s): Father is alive the patient has no contact with him. He does not know his past medical history. Brother(s) Family Medical History: No Reported History Additional Family Medical History / Comment(s): He has 3/2 brothers that are healthy. Sister(s) Family Medical History: No Reported History Additional Family Medical History / Comment(s): He has one full sister and one half-sister that are healthy with no major medical problems. <Vishal Lee - Last Filed: 08/11/17 21:40> General Exam Limitations: no limitations <Vishal Lee - Last Filed: 08/11/17 21:40> <Areli Garcia - Last Filed: 08/12/17 03:23> - General Exam Comments Initial Comments: GENERAL: The patient is well nourished and well hydrated. VITAL SIGNS: Heart rate, blood pressure, respiratory rate reviewed as recorded in nurse's notes. EYES: Pupils are round and reactive. Extraocular movements are intact. No conjunctival / lid redness or swelling. ENT: No external evidence of injury, swelling, or ecchymosis. Airway is patent. Throat is clear. NECK: Nontender. No swelling or evidence of injury. No subcutaneous emphysema. Trachea is midline. No thyroid mass. HEART: Regular rate and rhythm. Good peripheral pulses. LUNGS/CHEST: Breath sounds clear and equal bilaterally. No rales, rhonchi, or wheezes. No ecchymosis, subcutaneous emphysema, or tenderness. ABDOMEN: Abdomen soft without tenderness. No palpable masses or organomegaly. No peritoneal signs. No abdominal wall swelling or ecchymosis. EXTREMITIES: No extremity tenderness. Normal muscle tone and function. No thoracolumbar tenderness. NEUROLOGIC: Sensation is grossly intact. Cranial nerve exam reveals face is symmetrical, tongue is midline, speech is clear. SKIN: No abrasions or ecchymosis is noted. No induration or masses noted. PSYCHIATRIC: Alert and will follow commands and not head yes or no to questions but otherwise is not communicating verbally. He appears sad. (Vishal Lee) Medical Decision Making <Vishal Lee - Last Filed: 08/11/17 21:40> <Areli Garcia - Last Filed: 08/12/17 03:23> - Medical Decision Making The patient was seen and examined. All diagnostics were reviewed. It is felt as though he is medically cleared for further psychiatric evaluation. Psychiatric consult is placed. (Vishal Lee) - Lab Data Lab Results 08/11/17 Range/Units 22:20 Urine Opiates Screen Not Detected (NotDetected) Ur Oxycodone Screen Not Detected (NotDetected) Urine Methadone Screen Not Detected (NotDetected) Ur Propoxyphene Screen Not Detected (NotDetected) Ur Barbiturates Screen Not Detected (NotDetected) U Tricyclic Antidepress Not Detected (NotDetected) Ur Phencyclidine Scrn Not Detected (NotDetected) Ur Amphetamines Screen Not Detected (NotDetected) U Methamphetamines Scrn Not Detected (NotDetected) U Benzodiazepines Scrn Not Detected (NotDetected) Urine Cocaine Screen Not Detected (NotDetected) U Marijuana (THC) Screen Not Detected (NotDetected) Disposition <Vishal Lee - Last Filed: 08/11/17 21:40> <Arlei Garcia - Last Filed: 08/12/17 03:23> Clinical Impression: Major depression, Suicidal ideation Disposition: ADMITTED IP TO THIS HOSP
[2017-08-12] MEDS ORDERED: MAG HYDROX/AL HYDROX/SIMETH 30 ML CUP PO PRN (03:19)
[2017-08-12] MEDS ORDERED: LORazepam 1 MG TAB PO PRN (03:19)
[2017-08-12] MEDS ORDERED: ACETAMINOPHEN TAB 325 MG TAB PO PRN (03:19)
[2017-08-12] MEDS ORDERED: MAGNESIUM HYDROXIDE 2,400 MG/10 ML CUP PO PRN (03:19)
[2017-08-12] MEDS ORDERED: ZIPRASIDONE 20 MG VIAL IM PRN (03:19)
[2017-08-12] MEDS ORDERED: LORazepam 2 MG/ML SYRINGE IM PRN (03:22)
[2017-08-12 03:50] VITALS: RESP 16; BMI 32.8
[2017-08-12 10:53] LABS: Basophils # (A) 0.1 k/uL (0-0.2); Basophils % (A) 1 %; CH 29.8; CHCM 33.6; Eosinophils # (A) 0.2 k/uL (0-0.7); Eosinophils % (A) 3 %; HCT 44.9 % (39.0-53.0); HDW 2.64; HGB 14.6 gm/dL (13.0-17.5); Luc # (Auto) 0.13; Luc % (Auto) 2; Lymphocytes # (A) 2.3 k/uL (1.0-4.8); Lymphocytes % (A) 41 %; MCH 28.9 pg (25.0-35.0); MCHC 32.4 g/dL (31.0-37.0); MCV 89.1 fL (80.0-100.0); Mean Platelet Volume 7.1; Monocytes # (A) 0.4 k/uL (0-1.0); Monocytes % (A) 7 %; Neutrophils # (A) 2.5 k/uL (1.3-7.7); Neutrophils % (A) 45 %; RBC 5.04 m/uL (4.30-5.90); RDW 14.5 % (11.5-15.5); WBC 5.6 k/uL (3.8-10.6)
[2017-08-12 12:05] LABS: ALT 33 U/L (21-72); AST 21 U/L (17-59); Alkaline Phosphatase 51 U/L (38-126); Anion Gap 10 mmol/L; Blood Urea Nitrogen 13 mg/dL (9-20); Calcium 9.6 mg/dL (8.4-10.2); Carbon Dioxide 24 mmol/L (22-30); Chloride 107 mmol/L (98-107); Cholesterol 173 mg/dL (<200); Glucose 87 mg/dL (74-99); HDL Cholesterol 69 mg/dL (40-60); Non-African American GFR(MDRD) >60 (>60 ml/min/1.73 sqM); Potassium 3.8 mmol/L (3.5-5.1); Sodium 141 mmol/L (137-145); Total Bilirubin 0.6 mg/dL (0.2-1.3); Total Protein 6.9 g/dL (6.3-8.2)
--- NOTE | 2017-08-12 13:35 | P.HPIM ---
History of Present Illness H&P Date: 08/12/17 Chief Complaint: depression and suicidal ideation 22 year old male with PMHx of hypertension. presented due to suicidal ideation , he reports overwhelming sensation of hopelessness and depression. He found himself walking on the side of the street , and having thoughts of jumping in front of a car and "ending it" otherwise he denies any medical issues. He admits to having unsafe unprotected sexual encounters with female partners, however he denies any penile lesions, or discharge, denies any history of STI, he reports that he is not aware of any STIs in his sexual partners. Review of Systems Constitutional: Patient reports no fever, no chills, no night sweating, no significant weight changes Eyes: Patient reports no visual changes, no eye pain ENT: Patient reports no ear pain, no rhinorrhea, no sore throat Cardiovascular: Patient reports no chest pain, no exertional dyspnea, no peripheral leg edema, no orthopnea, no paroxysmal nocturnal dyspnea Respiratory:Patient reports no cough, no wheezing, no shortness of breath Gastrointestinal: Patient reports no diarrhea, no constipation, no nausea no vomiting, no abdominal pain Genitourinary: Patient reports no dysuria, no hematuria, no changes in urinary habits, no genital lesions Musculoskeletal: Patient reports no muscle pain, no joint pain Psychiatric: Patient reports no changes in memory, no anxiety but admits to depressed mood and suicidal ideation Endocrine: Patient reports no heat intolerance, no cold intolerance, no excessive thirst, no polyuria Neurological: Patient reports no focal neurologic deficits, no weakness, He reports numbness and pain over the right hand especially at night, he was told that he has carpal tunnel syndrome he reports that a doctor gave him a prescription for oral steroids. 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 his symptoms Hem/Lymphatic: Patient reports no bleeding tendency, no bruising, no swollen lymph glands Allergic/Immun: Patient reports no recent allergic reactions Skin: Patient reports no rashes, no pruritis, no ulcers Past Medical History Past Medical History: GERD/Reflux, Hypertension Additional Past Medical History / Comment(s): Asperger syndrome; Borderline Personality Disorder History of Any Multi-Drug Resistant Organisms: C-DIFF, MRSA Date of last positivie culture/infection: 03/31/17 MDRO Source:: AXILLA Past Surgical History: No Surgical Hx Reported Additional Past Surgical History / Comment(s): I and D abscess in his right axilla Past Anesthesia/Blood Transfusion Reactions: No Reported Reaction Past Psychological History: Anxiety, Bipolar, Depression Smoking Status: Former smoker Past Alcohol Use History: None Reported, Occasional Additional Past Alcohol Use History / Comment(s): Patient did smoke 3 to 4 cigarettes daily and quit in fall 2015. He denies any street drug use. Rarely drinks etoh. He lives alone. He does not have any children. 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 He was recently incarcerated for 9 months in [facility] Past Drug Use History: None Reported - Past Family History Mother Family Medical History: No Reported History Additional Family Medical History / Comment(s): Mother is alive the patient does not have any contact with her and does not know her medical history. Father Family Medical History: Chest Pain / Angina Additional Family Medical History / Comment(s): Father is alive the patient has no contact with him. He does not know his past medical history. Brother(s) Family Medical History: No Reported History Additional Family Medical History / Comment(s): He has 3/2 brothers that are healthy. Sister(s) Family Medical History: No Reported History Additional Family Medical History / Comment(s): He has one full sister and one half-sister that are healthy with no major medical problems. Medications and Allergies Home Medications and Allergies Comment(s): reviewed patient does not take any medication on chronic basis Home Medications Medication Instructions Recorded Confirmed Type methylPREDNISolone [Medrol Dose See Taper PO DAILY 08/11/17 08/12/17 History Pack] Allergies Allergy/AdvReac Type Severity Reaction Status Date / Time No Known Allergies Allergy Verified 08/12/17 04:30 Physical Exam Vitals: Vital Signs Temp Pulse Pulse Resp BP BP Pulse Ox 08/12/17 03:44 97.3 F L 58 L 16 114/72 100 08/12/17 03:24 97.0 F L 60 18 135/63 100 08/11/17 20:57 99.0 F 75 18 127/77 99 Intake and Output 08/11/17 08/12/17 08/12/17 22:59 06:59 14:59 Other: Weight 90.718 kg 98.004 kg Constitutional: No acute distress, conversant, pleasant Eyes: Anicteric sclerae, moist conjunctiva, no lid-lag Pupils equal round reactive to light ENMT: NC/AT Oropharynx clear, no erythema, exudates Neck: Supple, FROM, no masses, or JVD No carotid bruits No thyromegaly Lungs: Clear to auscultation Clear to percussion Normal respiratory effort, no accessory muscle use Cardiovascular: Heart regular in rate and rhythm, No murmurs, gallops, or rubs No peripheral edema Abdominal: Soft Nontender, no guarding, rebound or rigidity Abdomen moving with respiration Normoactive bowel sounds No hepatomegaly, No splenomegaly No palpable mass No abdominal wall hernia noted Skin: Normal temperature, tone, texture, turgor No induration No subcutaneous nodules No rash, lesions No ulcers Extremities: No digital cyanosis No clubbing Pedal pulses intact and symmetrical Radial pulses intact and symmetrical No calf tenderness Psychiatric: Alert and oriented to person, place and time Appropriate affect poor judgment Neuro Muscles Strength 5/5 in all 4 extremities Sensation to light touch grossly present throughout, he reports decrease sensation to light touch over the right 5th and 4th toes Lymphatics: no palpable cervical or supraclavicular , or inguinal lymph nodes Results Results: reviewed CBC & Chem 7: 08/12/17 10:26 08/12/17 10:26 Labs: Abnormal Lab Results - Last 24 Hours (Table) 08/12/17 Range/Units 10:26 HDL Cholesterol 69 H (40-60) mg/dL Thrombosis Risk Factor Assmnt - Choose All That Apply Any of the Below Risk Factors Present?: Yes Each Factor Represents 1 point: Obesity (BMI >25) Other Risk Factors: No Thrombosis Risk Factor Assessment Total Risk Factor Score: 1 Thrombosis Risk Factor Assessment Level: Low Risk Assessment and Plan (1) Major depression Narrative/Plan: management per psych Status: Acute (2) Suicidal ideation Narrative/Plan: management per psych suicide precautions Status: Acute (3) Carpal tunnel syndrome Narrative/Plan: right hand offered right wrist splint to be worn all the time except while taking a bath discontinue steroids Status: Acute (4) DVT prophylaxis Narrative/Plan: low risk , ambulatory Status: Acute Plan: patient does not have any symptoms of STI, and he denies any knowledge of STI in his partners, this does not warrant doing any further testing. patient educated regarding safe sexual practices Thank you for allowing us to participate in the care of this patient. We will follow peripherally. Do not hesitate to contact us with questions. Someone can be reached from the [facility] hospitalist group at all hours of the day at [phone].
[2017-08-12 13:54] LABS: Hemoglobin A1C 5.4 % (4.2-6.1)
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
[2017-08-13 06:39] VITALS: BP 94/46; PULSE 54; TEMP 97.9
--- NOTE | 2017-08-13 10:14 | P.DS ---
Providers Date of admission: 08/12/17 03:14 Expected date of discharge: 08/13/17 Attending physician: Amber Henderson MD Consults: 08/12/17 03:19 Consult Physician Routine Consulting Provider: Oneyda Prajapati Consult Reason/Comments: For H & P for Medical Follow Up Do you want consulting provider notified?: Yes Primary care physician: Stated None Hospital Course: Discharge Diagnoses: Unspecified personality disorder Reason for Admission: Patient is a 22-year-old male who was brought to the hospital by emergency medical services after he was found walking in the middle of the road, when police were called patient and asked the police to shoot him. Patient states that he was not walking in the middle of the road, states that he had had a bad day and was walking on the side of the road was sitting in a parking lot looking for a place to stay. Patient states he been living in [place] with his girlfriend who broke up with him and she returned to this area. Patient reports he had no way of getting back to [place] and was upset about the breakup. Patient states that he had thoughts of dying but did not think it was a good idea and was feeling somewhat hopeless about the situation. Patient denied feeling suicidal and states that this was not a suicide attempt. Patient had been discharged from the unit in June 2016 and was in penitentiary from July 03 until 03/17/2017 for violation of his probation. He reports that he was seen at [facility] for 2-3 months after his release and that they okayed him not returning to take medication as he had refused meds while he was in penitentiary. Patient states he is no longer seen by [facility] and has not been on medication since his entrance into penitentiary in June 2016. Patient does have a history in the past of impulsive behavior, spending money has made multiple suicide attempts in the past, has had episodes of depression in the past for his sleep is poor and he has little energy and is withdrawn. Patient reports that he has attempted suicide in the past on multiple occasions. Patient on admission denied that he was feeling depressed, states that he was not feeling worthless, denied any current manic symptoms, stated he was not feeling impulsive and reported that he had been using exercise since that time he had been incarcerated to control his mood. Patient did not endorse any symptoms of psychosis, fredi or depression. Hospital Course: Patient was admitted on a voluntary basis, routine laboratory studies were obtained, medical consultation was obtained the patient was placed on routine precautions. Patient was also ordered group and activity therapy. Patient denied that he was having any suicidal thoughts and stated that he was not attempting to commit suicide when he was brought into the hospital by EMS. Patient states that he had recently broken up with his girlfriend and was upset about this and they had come over to the [place] area which is where she lives and he had been living in [place] and one of the homes his grandparents owned. Patient has not been able to hold a job and recently quit his job after several weeks due to difficulties with coworkers not telling him how to do work. Patient refused any medication, patient did not exhibit any symptoms of a manic episode, depressive episode and there is no evidence of a psychosis and he continued to deny any suicidal ideation. Patient was agreeable to outpatient counseling to assist him in learning better coping strategies. Patient was seen by the medical examiner the steroid dose pack was not continued but a wrist splint for his right wrist was ordered. Laboratory Last Values WBC 5.6 k/uL (3.8-10.6) 08/12/17 10: RBC 5.04 m/uL (4.30-5.90) 08/12/17 10: Hgb 14.6 gm/dL (13.0-17.5) 08/12/17 10: Hct 44.9 % (39.0-53.0) 08/12/17 10: MCV 89.1 fL (80.0-100.0) 08/12/17 10: MCH 28.9 pg (25.0-35.0) 08/12/17 10: MCHC 32.4 g/dL (31.0-37.0) 08/12/17 10: RDW 14.5 % (11.5-15.5) 08/12/17 10: Plt Count 227 k/uL (150-450) 08/12/17 10: Neutrophils % 45 % 08/12/17 10: Lymphocytes % 41 % 08/12/17 10: Monocytes % 7 % 08/12/17 10: Eosinophils % 3 % 08/12/17 10: Basophils % 1 % 08/12/17 10:26 Neutrophils # 2.5 k/uL (1.3-7.7) 08/12/17 10:26 Lymphocytes # 2.3 k/uL (1.0-4.8) 08/12/17 10: Monocytes # 0.4 k/uL (0-1.0) 08/12/17 10: Eosinophils # 0.2 k/uL (0-0.7) 08/12/17 10:26 Basophils # 0.1 k/uL (0-0.2) 08/12/17 10:26 Sodium 141 mmol/L (137-145) 08/12/17 10:26 Potassium 3.8 mmol/L (3.5-5.1) 08/12/17 10:26 Chloride 107 mmol/L (98-107) 08/12/17 10:26 Carbon Dioxide 24 mmol/L (22-30) 08/12/17 10:26 Anion Gap 10 mmol/L 08/12/17 10:26 BUN 13 mg/dL (9-20) 08/12/17 10:26 Creatinine 0.79 mg/dL (0.66-1.25) 08/12/17 10:26 Est GFR (MDRD) Af Amer >60 (>60 ml/min/1.73 sqM) 08/12/17 10:26 Est GFR (MDRD) Non-Af >60 (>60 ml/min/1.73 sqM) 08/12/17 10:26 Glucose 87 mg/dL (74-99) 08/12/17 10:[address] Glu mg/dL 108 mg/dL 08/12/17 10:26 Hemoglobin A1c 5.4 % (4.2-6.1) 08/12/17 10:26 Calcium 9.6 mg/dL (8.4-10.2) 08/12/17 10:26 Total Bilirubin 0.6 mg/dL (0.2-1.3) 08/12/17 10:26 AST 21 U/L (17-59) 08/12/17 10:26 ALT 33 U/L (21-72) 08/12/17 10:26 Alkaline Phosphatase 51 U/L (38-126) 08/12/17 10:26 Total Protein 6.9 g/dL (6.3-8.2) 08/12/17 10: Albumin 4.1 g/dL (3.5-5.0) 08/12/17 10:26 Triglycerides 122 mg/dL (<150) 08/12/17 10: Cholesterol 173 mg/dL (<200) 08/12/17 10:26 LDL Cholesterol, Calc 80 mg/dL (0-99) 08/12/17 10:26 HDL Cholesterol 69 mg/dL (40-60) H 08/12/17 10:26 TSH 1.270 mIU/L (0.465-4.680) 08/12/17 10:26 Urine Opiates Screen Not Detected (NotDetected) 08/11/17 22:20 Ur Oxycodone Screen Not Detected (NotDetected) 08/11/17 22:20 Urine Methadone Screen Not Detected (NotDetected) 08/11/17 22:20 Ur Propoxyphene Screen Not Detected (NotDetected) 08/11/17 22:20 Ur Barbiturates Screen Not Detected (NotDetected) 08/11/17 22:20 U Tricyclic Antidepress Not Detected (NotDetected) 08/11/17 22:20 Ur Phencyclidine Scrn Not Detected (NotDetected) 08/11/17 22:20 Ur Amphetamines Screen Not Detected (NotDetected) 08/11/17 22:20 U Methamphetamines Scrn Not Detected (NotDetected) 08/11/17 22:20 U Benzodiazepines Scrn Not Detected (NotDetected) 08/11/17 22:20 Urine Cocaine Screen Not Detected (NotDetected) 08/11/17 22:20 U Marijuana (THC) Screen Not Detected (NotDetected) 08/11/17 22:20 Discharge Mental Status:Appearance/Attitude: Patient is neatly groomed, makes good eye contact and is cooperative. Behavior: Patient does not display any psychomotor agitation or retardation. Speech/Language: Patient's speech is spontaneous and of normal volume and rhythm and he is coherent. Thought Process: Patient is goal-directed there is no evidence of circumstantial or tangential thought and no loose associations or flight of ideas. Thought Content: Patient denies any auditory or visual hallucinations no delusions or paranoid ideation were elicited. Patient denies that he is feeling hopeless, helpless or worthless states he is not having any racing thoughts or feeling impulsive. Patient states he is sleeping and eating well. Suicidal/Homicidal Ideation: Patient denies any current suicidal or homicidal ideation. Sensorium/Cognition: Patient is alert and oriented to person, place, and time and his memory is grossly intact. Mood/Affect: Patient's mood is euthymic and his affect is appropriate. Insight/Judgement: Patient's insight is fair. Risk Assessment: Patient's risk for self-harm is moderate due to his prior history of multiple suicide attempts, poor coping strategies and limited support system Discharge Plan: Patient will be discharged and states he will spend the night with his grandparents and then return to their home in [place]. Patient was agreeable for a referral for [facility] for outpatient counseling to assist him in developing better coping strategies. Patient was advised to avoid any alcohol or drugs and to follow up with outpatient counseling. Patient was discharged on no psychotropic medication. Patient Condition at Discharge: Stable Plan - Discharge Summary New Discharge Prescriptions: Discontinued methylPREDNISolone [Medrol Dose Pack] See Taper PO DAILY Follow up Appointment(s)/Referral(s): intake, intake [Other] - 08/15/17 12:00 pm (Intake with the crisis team 08/15/17 at 12:00pm.) None,Stated [Primary Care Provider] - 1-2 days Patient Instructions/Handouts: Depression (DC), Suicide Prevention for Adults ( [place]) Discharge Disposition: HOME SELF-CARE
== END 2017-08-13 14:44 | disposition home or self-care (01) | DRG 885 ==
LOC: EC 20:55 → 3MHU 08-12 03:14
PROVIDERS: ADMIT Psychiatry & Neurology Psychiatry; ATTEND Psychiatry & Neurology Psychiatry
DX: F31.9 Bipolar disorder, unspecified (principal); R45.851 Suicidal ideations; I10 Essential (primary) hypertension; F84.5 Asperger's syndrome; F41.9 Anxiety disorder, unspecified; F60.3 Borderline personality disorder; G56.01 Carpal tunnel syndrome, right upper limb; K21.9 Gastro-esophageal reflux disease without esophagitis; Y92.481 Parking lot as the place of occurrence of the external cause; Z86.14 Personal history of Methicillin resistant Staphylococcus aureus infection; Z87.891 Personal history of nicotine dependence; Z81.8 Family history of other mental and behavioral disorders; E66.9 Obesity, unspecified; Z68.32 Body mass index [BMI] 32.0-32.9, adult; Z91.5 Personal history of self-harm; Z60.2 Problems related to living alone; Z79.52 Long term (current) use of systemic steroids
CPT/HCPCS: 80053; 80061; 80306; 82075; 83036; 84443; 85025; 99285